=== PATIENT | female | born 1995 | race Two or more races ===

== ENCOUNTER 2020-03-23 22:34 | Emergency (ER) | payer OTHER ==
[~2020-03-23] VITALS: Ht 167.6 cm; Wt 90.7 kg
[2020-03-24] MEDS ORDERED: DICLOFENAC SODI75 MG PO (00:15)
== END 2020-03-24 00:53 | disposition home or self-care (01) ==
LOC: ER 22:34
DX: S93.402A Sprain of unspecified ligament of left ankle, initial encounter (principal); X50.0XXA Overexertion from strenuous movement or load, initial encounter; Y93.89 Activity, other specified; Y92.89 Other specified places as the place of occurrence of the external cause; Y99.8 Other external cause status